=== PATIENT | female | born 1955 | race Caucasian/White ===

== ENCOUNTER 2022-04-29 09:16 | Emergency (ER) | payer MEDICARE ==
[~2022-04-29] VITALS: Ht 167.6 cm; Wt 110.0 kg
[2022-04-29 09:18] VITALS: BP 166/85
[2022-04-29] MEDS ORDERED: haloperidol 5mg tablet PO ONE (10:20)
[2022-04-29] MEDS ORDERED: ibuprofen tablet 400 MG TABLET PO ONE (10:20)
[2022-04-29] MEDS ORDERED: metoclopramide 10mg tablet PO ONE (10:20)
--- NOTE | 2022-04-29 11:18 | NUR ---
PT'S SISTER WENT OUT TO THE CAR TO CHECK ON THE PT'S DOG AT APPROX 1015 AND HAS NOT RETURNED. NO PHONE # LISTED TO CALL SISTER TO NOTIFIY THAT PT IS READY FOR DC.
== END 2022-04-29 12:01 | disposition home or self-care (01) ==
LOC: ER 09:17
DX: Z04.6 Encounter for general psychiatric examination, requested by authority (principal)
CPT/HCPCS: 99284